=== PATIENT | female | born 1945 | race Caucasian/White ===

== ENCOUNTER 2017-11-08 11:50 | Outpatient (CLI) | payer MEDICARE ==
[2017-11-08 13:23] LABS: Bilirubin Negative (Negative); Blood, Urine Negative (Negative); Clarity CLEAR (Clear); Glucose, Urine (Dipstick) Negative (Negative); Leukocyte Negative (Negative); Nitrite Negative (Negative); Protein, Urine (Dipstick) Negative (Neg-Trace); Specific Gravity, Urine 1.007 (1.002-1.036); Urobilinogen 0.2 mg/dL (0.2-1.0)
[2017-11-08 13:25] LABS: Bacteria/HPF None Seen HPF (None Seen); Hyaline Casts/LPF 0-3 HYALINE CAST LPF (0-3 Hyaline); RBC/HPF 0-3 HPF (0-3); Squamous Epithelial None Seen HPF (0-3); WBC/HPF None Seen HPF (0-3)
[2017-11-08 13:28] LABS: #Eosinphils 0.1 thou/uL (0.0-0.7); #Lymphocytes 1.7 thou/uL (1.20-3.40); #Monocytes 0.5 thou/uL (0.11-0.59); #Neutrophils 3.4 thou/uL (1.40-6.50); %Basophils 0.4 % (0.0-1.0); %Eosinophils 1.6 % (0.0-10.0); %Lymphocytes 29.3 % (21.0-51.0); %Monocytes 9.2 % (0.0-10.0); %Neutrophils 59.5 % (42.0-75.0); Hemoglobin 13.3 g/dL (12.0-16.0); INR-International Normal Ratio 0.9; Mean Corpuscular HGB CONC 33.3 g/dL (32.0-36.0); Mean Corpuscular Hemoglobin 31.1 pg (27.0-31.0); Mean Corpuscular Volume 93.5 fl (81.0-99.0); Platelet Count 182 thou/uL (130-400); Prothrombin Time 12.4 SEC (12.0-14.7); RBC Distribution Width 12.5 % (11.5-14.5); Red Blood Cell (RBC) Count 4.28 mill/uL (4.20-5.40); White Blood Cell (WBC) Count 5.8 thou/uL (4.8-10.8)
[2017-11-08 13:47] LABS: Anion Gap 10 mmol/L (10-20); BUN (Urea Nitrogen) 15 mg/dL (9.8-20.1); Calc. Creatinine Clearance 0 mL/min (70-130); Carbon Dioxide 30 mmol/L (23-31); Chloride 102 mmol/L (98-107); Estimated GFR-MDRD Greater than 90; Glucose 89 mg/dL (83-110); Potassium 3.6 mmol/L (3.5-5.1); Sodium 138 mmol/L (136-145)
--- NOTE | 2017-11-08 15:09 | RAD ---
2 VIEWS CHEST: Date: 11/08/17 HISTORY: Preoperative chest radiograph. FINDINGS: PA and lateral views of chest obtained. Mild cardiomegaly seen. ACDF plates and screws seen in the lower cervical spine. Some osteoporosis of the thoracic spine seen. No evidence of fractures seen. IMPRESSION: Unremarkable 2 views chest. POS: [facility]
== END 2017-11-08 11:51 | disposition home or self-care (01) ==
LOC: LABBT 11:50
PROVIDERS: ATTEND Orthopaedic Surgery
DX: Z01.818 Encounter for other preprocedural examination (principal); M17.12 Unilateral primary osteoarthritis, left knee
CPT/HCPCS: 71046; 80048; 81001; 85025; 85610; 86850; 86900; 86901; 87081

== ENCOUNTER 2017-11-08 12:30 | Inpatient (IN) | payer MEDICARE ==
[2017-11-08 12:14] VITALS: BMI 27.4
[2017-11-15] MEDS ORDERED: HYDROcodone/Acetaminophen 10/325 mg Tablet PO PRN ×3 (07:05→08:45)
[2017-11-15] MEDS ORDERED: Fentanyl 100 MCG/2 ML VIAL SLOW IVP PRN ×2 (07:05)
[2017-11-15] MEDS ORDERED: Zolpidem Tartrate 5 MG TAB PO PRN ×2 (07:05→08:45)
[2017-11-15] MEDS ORDERED: Ondansetron HCl/PF 4 MG/2 ML Vial IVP PRN ×2 (07:05→09:52)
[2017-11-15] MEDS ORDERED: traMADol HCl 50 MG TAB PO PRN ×3 (07:05→08:45)
[2017-11-15] MEDS ORDERED: Acetaminophen 325 MG TAB PO PRN (07:05)
[2017-11-15] MEDS ORDERED: diphenhydrAMINE 25 MG CAP PO PRN (07:05)
[2017-11-15] MEDS ORDERED: Promethazine HCl 25 MG/ML VIAL IM PRN ×3 (07:05→09:52)
[2017-11-15] MEDS ORDERED: Tranexamic Acid 1,000 MG in Sodium Chloride 0.9% 100 ML IVPB SCH (07:15)
[2017-11-15] MEDS ORDERED: Fentanyl 100 MCG/2 ML VIAL ONE ×2 (08:01→11:17)
[2017-11-15] MEDS ORDERED: Midazolam HCl 2 mg/2 ml Vial ONE (08:01)
[2017-11-15] MEDS ORDERED: Sodium Chloride 0.9% 100 ML ONE (08:02)
[2017-11-15] MEDS ORDERED: Promethazine HCl 25 MG/ML VIAL SLOW IVP PRN (09:52)
--- NOTE | 2017-11-15 10:51 | OP ---
DATE OF PROCEDURE: 11/15/2017 PREOPERATIVE DIAGNOSIS: End-stage tricompartmental osteoarthritis, left knee. POSTOPERATIVE DIAGNOSIS: End-stage tricompartmental osteoarthritis, left knee. OPERATIVE PROCEDURE: Cemented cruciate-sparing computer-assisted navigated left total knee arthropla stpaddy. SURGEON: Maximino Back M.D. [employer]LECT[employer] MECHANIC: Gus Anne PA-C. ANESTHESIA: General via laryngeal mask airway augmented with indwelling femoral block and single maribel t sciatic block. COMPONENTS USED: [employer] Triathlon primary cemented cruciate sparing Triathlon size 4 fe moral component with a size 4 cemented primary tibial baseplate, 9 mm polyethylene fixed bearing inse rt, and A32 patellar button. TOURNIQUET TIME: 54 minutes at 300 mmHg. ESTIMATED BLOOD LOSS: Less than 100 mL. FINDINGS: End-stage severe degenerative tricompartmental disease, bone on bone arthrosis, periarticu lar osteophyte formation, large serous effusion, hypertrophic synovium. DRAINS: None. SPECIMENS: None. COMPLICATIONS: None. COUNTS: Correct. INDICATIONS FOR SURGERY: Fern is a 72-year-old white female who has had progressive left knee pain amplified with standing and walking for the last 5-7 years. She has failed conservative management and elected to proceed with left total knee arthroplasty as a definitive treatment of her pain. PROCEDURE IN DETAIL: After informed consent was obtained in the preoperative holding area. The lois ent was taken to the operative suite where general anesthesia was induced. Once adequate level of ge neral anesthesia was obtained, the patient was positioned and a well-padded tourniquet was placed blane und the left proximal thigh. The left lower extremity was then prepped and draped in the usual steri le fashion. Prior to exsanguination, a time out was called and all members of the surgical team agre ed upon site, surgeon, and patient. The extremity was then exsanguinated and the tourniquet was rais ed. A midline longitudinal incision was then made directly over the patella extending two fingerbrea dths above the superior pole of the patella and two fingerbreadths inferior to the inferior patellar pole of the patella. Deeper subcutaneous layers were dissected sharply and local bleeding was contro lled with Bovie electrocautery. A quad tendon longitudinal split was then made sharply and a median parapatellar arthrotomy was carried out both sharp and with Bovie electrocautery, carried down to one fingerbreadth medial to the tibial tubercle. The knee was then placed into flexion and the patella was everted nicely, and a copious fat pad ectomy was performed allowing for greater exposure of the t ibia. The computer-assisted distal femoral fiducial was then placed and pinned firmly, and the dista l femoral cutting guide was pinned firmly into place. The oscillating saw was then used to remove th e appropriate amount of bone. The 4-in-1 cutting block was then placed on the distal femur and the o scillating saw was used to remove the appropriate amount of bone off of the anterior, posterior, and chamfer cuts. After completion of the chamfer cuts, the box-cutting guide was placed, malleted firml y into place and pinned securely, and an osteotome was used to make the distal cut and the oscillatin g saw was then used to make the medial and lateral box cuts. This came out quite nicely and was vera selena with Bovie electrocautery, and the oscillating saw was then used to broaden the lateral medial wa lls of the box cut. After completion of bone cuts, the anterior cruciate ligament was resected sharp ly and the posterior cruciate ligament retractor was placed and the tibia was subluxed for better exp osure. Partial meniscectomies were carried out, and the tibial computer-assisted fiducial was pinned , and the cutting guide was placed. Oscillating saw was then used to remove the bone with Hohmann re tractors used to take care and protect the collateral ligaments. After the tibial resection was perf ormed, a laminar marine erector was placed in between the freshened bone cuts. The knee placed at 90 degre es and further bilateral meniscectomies were carried out, and the curved osteotome and curettage was used to remove any excess bone spurs in the posterior compartment. The trial femoral component, tibi al baseplate were placed with the appropriate polyethylene trial insert with an appropriate polyethyl steve spacer and patellar button. The knee was taken through full range of motion with flexion and ext ension from 0-90 degrees and patellar broach squarely in the trochlea without any squinting or sublu xation noted. The knee was also stable to varus and valgus stressing at 0, 15, 45, and 90 degrees of flexion. The drawer was negative. All trial components were then removed and the keel punch was use d to provide the appropriate defect in the tibia with a mallet. The freshened bone cuts were copious ly irrigated with pulsatile lavage of about 1-1/2 liters to remove all excess debris. The freshened bone cuts were then dried and with suction and lap sponge. The knee was placed in flexion and retrac tors were placed to provide access to all bone cuts. Tobramycin impregnated methyl methacrylate ceme nt was then placed on the freshened bone cuts and implants which were malleted firmly into place. Cu rettage and [place] elevators were used to remove any excess bone cement. The knee was placed into ful l extension and the patellar button was placed under compression, and the cement was allowed to cure. Once completed, the components were again taken through full range of motion and copious irrigation of the knee was carried out with another liter of normal saline. All components were inspected full y with full range of motion and varus and valgus stressing. There was no laxity noted and full extens ion was observed clinically. Primary closure was accomplished with #2 interrupted Vicryl stitch of t he arthrotomy defect. This was oversewn with a #2 running Quill barbed stitch. The subcutaneous lay er was then closed with a running 0 barbed Monocryl stitch and skin closure accomplished with a runni ng subcuticular 3-0 Monocryl barbed Quill stitch and augmented with cement on the skin. Tourniquet w as lowered. Good spontaneous return of distal pulses was noted clinically and a sterile dressing was applied to the incision. The procedure was terminated without any complications. The patient was a wakened in the operative suite and taken to the recovery room in stable condition.
--- NOTE | 2017-11-15 12:13 | RAD ---
LEFT KNEE TWO VIEWS: 11/15/2017 HISTORY: Total knee arthroplasty. FINDINGS: Postoperative fluid and gas are noted anteriorly. No displaced fracture or dislocation. Tibial and femoral components appear well seated with no evidence of hardware failure. IMPRESSION: Status post left total knee arthroplasty. POS: [facility]
[2017-11-15] MEDS ORDERED: Promethazine HCl 25 MG/ML VIAL ONE (12:16)
[2017-11-15] MEDS: Sodium Chloride 0.9% 1,000 ML IV SCH ×2 (13:23→17:48)
[2017-11-15] MEDS: Ketorolac Tromethamine 30 MG/ML VIAL IVP SCH ×2 (13:24→17:44)
[2017-11-15] MEDS: Senokot S 8.6-50 MG TAB PO SCH ×2 (13:24→20:41)
[2017-11-15] MEDS: Aspirin 81 mg Enteric Coated Tablet PO SCH ×2 (13:24→20:40)
[2017-11-15] MEDS: Calcium Carbonate 500 MG TAB PO SCH ×2 (13:24→20:40)
[2017-11-15] MEDS: Ferrous Gluconate 324 MG TAB PO SCH ×2 (13:24→20:40)
[2017-11-15] MEDS: Multivitamin W/ Minerals 1 TAB PO SCH (13:24)
[2017-11-15] MEDS ORDERED: Ketorolac Tromethamine 30 MG/ML VIAL IM SCH (14:00)
--- NOTE | 2017-11-15 14:06 | PDOC.FPRHP ---
- History of Present Illness Chief Complaint: Consult for medical management s/p left total knee arthroplasty History of Present Illness: 72F presents for medical management. She is s/p left total knee arthroplasty due to pain, failing conservative management for the past 5-7 years. She says at this time, she has some pain in her knee, but it is tolerable at this time. She reports that Gen Surg plans to discharge her with outpatient therapy later this week. Her current complaint includes feeling unable to take a full breath at this time. She specifically denies pleurisy, cough, congestion. Vitals at this time shows O2 of 97% on RA, she is able to take in 1500 ml on incentive spirometry and breath sound is clear and equal on both side. She complains about neck pain. She has history of surgery involving c5-c7 with hardware placement. She rates the pain as localized, 5/10, aching. She has history of SVT with ablation. She is not symptomatic at this time, denying palpitation, chest pain, nausea. On metoprolol succinate 25 mg QD. HLD: On atorvastatin 10 mg QD. Denies muscle ache side effect. GERD: Takes tums for this. Has not required other medications. - Allergies/Adverse Reactions Allergies Allergy/AdvReac Type Severity Reaction Status Date / Time belladonna alkaloids Allergy hallucinati Verified 11/08/17 12:14 ons - Home Medications Medication Instructions Recorded Confirmed Type Acetaminophen 1,000 mg PO Q6HR PRN 11/08/17 11/08/17 History Ascorbate Calcium [Vitamin C] 1,000 mg PO HS 11/08/17 11/08/17 History Aspirin 325 mg PO 11/08/17 11/08/17 History Atorvastatin Calcium [Lipitor] 10 mg PO HS 11/08/17 11/08/17 History Calcium Carbonate [Calcium] 1,000 mg PO BID 11/08/17 11/08/17 History Metoprolol Succinate 25 mg PO DAILY 11/08/17 11/08/17 History Isabel-3 Fatty Acids/Fish Oil [Fish 2 cap PO HS 11/08/17 11/08/17 History Oil 1,000 mg Capsule] Vitamin E 400 unit PO HS 11/08/17 11/08/17 History - History PMHx: PSHx: FHx: Social: - Review of Systems General: denies: fever/chills, fatigue Eyes: denies: vision changes ENT: denies: nasal congestion Respiratory: reports: other (Feels unable to take full breath). denies: cough, congestion Cardiovascular: denies: chest pain, palpitation Gastrointestinal: reports: nausea. denies: vomiting, constipation, abdominal pain Genitourinary: reports: other (Bai catheter in.) Skin: reports: other (Left knee bandaged s/p surgery.) Musculoskeletal: reports: pain (Pain at neck and left knee.), arthritis/ arthralgias (Reports arthritis "everywhere") Neurological: reports: numbness (Endorse some numbness in left foot s/p surgery) . denies: weakness Psychological: denies: anxiety, depression - Vital signs BP: [] HR: [] RR: [] Tmax: [] Pox: []% on [] Wt: [] - Physical Exam Constitutional: NAD, awake, alert and oriented HEENT: normocephalic and atraumatic, conjunctiva clear, no scleral icterus, grossly normal hearing, MMM Neck: trachea midline -Neck: Neck tender to palpation posteriorly Heart: no murmurs/rubs/gallops -Heart: Irregularly irregular heart rate, overall HR approximately 86 Lungs: CTAB, no respiratory distress, good air movement, no wheezing, no retractions Abdomen: soft, non-tender, bowel sounds present Neurological: no focal deficit -Neurological: Able to move toes in both limbs. Able to take gross movement in both legs. Endorse numbness in left leg, but is able to detect gross sensation. Bandaged left knee Skin: no rash/lesions Heme/Lymphatic: no unusual bruising or bleeding Psychiatric: normal mood and affect, good judgment and insight, intact recent and remote memory FMR H&P: Results - Labs Result Diagrams: 11/16/17 04:49 Additional comment: Presurgical lab result on 11/08 are as followed WBC 5.8, Hgb 13.3, Plt 182 PT 12.4, INR 0.9 Na 138, K 3.6, Cl 102, Bicarb 30, BUN 15, Ca 0.62, Glucose 89, Ca 9 UA: Normal without sign of infection. FMR H&P: A/P - Problem List (1) Status post total left knee replacement using cement Current Visit: Yes Status: Acute Code(s): Z96.652 - PRESENCE OF LEFT ARTIFICIAL KNEE JOINT Assessment and Plan: Uncomplicated sx according to op note. Patient state the plan dispo is for outpatient therapy later this week. Patient at this time feels pain is bearable. Plan is to follow up with surgical recs, and for patient to participate in physical therapy while here. Follow up with surg on resuming anticoagulation. (2) Irregular heart beat Current Visit: Yes Status: Acute Code(s): I49.9 - CARDIAC ARRHYTHMIA, UNSPECIFIED Assessment and Plan: Detected on exam. Patient asymptomatic with stable vitals. Plan is to obtain EKG. May possibly be previous SVT. (3) HLD (hyperlipidemia) Current Visit: Yes Status: Acute Code(s): E78.5 - HYPERLIPIDEMIA, UNSPECIFIED Assessment and Plan: Resume atorvastatin,. (4) Hx of supraventricular tachycardia Current Visit: Yes Status: Acute Code(s): Z86.79 - PERSONAL HISTORY OF OTHER DISEASES OF THE CIRCULATORY SYSTEM Assessment and Plan: Will obtain EKG. Resume metoprolol. (5) Hx of cervical spine surgery Current Visit: Yes Status: Acute Code(s): Z98.890 - OTHER SPECIFIED POSTPROCEDURAL STATES Assessment and Plan: Will start lidocaine patch once daily for neck pain. - Plan Patient says her dc is likely Tuesday of this week to outpatient rehab Disposition/LOS: 3 days FMR H&P: Upper Level - Plan Date/Time: 11/15/17 1402 I, [], have evaluated this patient and agree with findings/plan as outlined by pr internship resident. Pertinent changes/additions are listed here. Attending Addendum - Attending Addendum Date/Time: 11/15/17 1500 I personally evaluated the patient and discussed the management with Dr. Dinh I agree with the History, Examination, Assessment and Plan documented above with any addition or exceptions noted below. Will monitor and treat medical problems that arise. EKG ordered due to abnormal rhythm noted on exam. Will follow up with ortho to discuss appropriate timing of anticoagulant. Saira
[2017-11-15] MEDS: Lidocaine 5% Patch TD SCH (14:39)
[2017-11-15] MEDS ORDERED: Ondansetron HCl/PF 4 MG/2 ML Vial ONE (15:42)
[2017-11-15] MEDS ORDERED: Lidocaine 1% PF 5 ML VIAL ONE (15:42)
[2017-11-15] MEDS ORDERED: PROPOFOL 200 MG/20 ML VIAL ONE (15:42)
[2017-11-15] MEDS ORDERED: Ropivacaine 0.5% HCl/PF (150 MG/30 ML VIAL) ONE (16:24)
[2017-11-15] MEDS ORDERED: Ropivacaine 0.2% HCl/PF (40 MG/20 ML VIAL) ONE (16:24)
[2017-11-15] MEDS: CEFAZOLIN/Water 2 GM/20 ML SYRINGE SLOW IVP SCH (17:48)
[2017-11-15] MEDS: Vitami E (Dl,Tocopheryl Acet) 400 UNITS CAP PO SCH (20:39)
[2017-11-15] MEDS: Fish Oil 1,000 MG CAP PO SCH (20:39)
[2017-11-15] MEDS: Atorvastatin Calcium 10 MG TAB PO SCH (20:40)
[2017-11-15] MEDS: HYDROcodone/Acetaminophen 10/325 mg Tablet PO PRN (20:42)
[2017-11-15] MEDS: Ondansetron HCl/PF 4 MG/2 ML Vial IVP PRN (22:33)
[2017-11-16] MEDS: Ketorolac Tromethamine 30 MG/ML VIAL IVP SCH ×5 (01:00→23:21)
[2017-11-16] MEDS: Bupivacaine 0.5% 50 ML in Sodium Chloride 0.9% 50 ML NERVE BLCK SCH ×2 (01:02→23:23)
[2017-11-16] MEDS: CEFAZOLIN/Water 2 GM/20 ML SYRINGE SLOW IVP SCH (01:02)
[2017-11-16] MEDS: Sodium Chloride 0.9% 1,000 ML IV SCH ×3 (02:15→23:22)
[2017-11-16 05:33] LABS: Mean Corpuscular HGB CONC 32.8 g/dL (32.0-36.0); Mean Corpuscular Hemoglobin 30.9 pg (27.0-31.0); Mean Corpuscular Volume 94.2 fl (81.0-99.0); Mean Platelet Volume 8.1 fL (7.4-10.4); Platelet Count 165 thou/uL (130-400); RBC Distribution Width 12.4 % (11.5-14.5); Red Blood Cell (RBC) Count 3.55 mill/uL (4.20-5.40); White Blood Cell (WBC) Count 7.2 thou/uL (4.8-10.8)
[2017-11-16] MEDS: Ondansetron HCl/PF 4 MG/2 ML Vial IVP PRN ×2 (05:36→14:45)
[2017-11-16] MEDS: Multivitamin W/ Minerals 1 TAB PO SCH (08:40)
[2017-11-16] MEDS: Ferrous Gluconate 324 MG TAB PO SCH ×2 (08:40→20:07)
[2017-11-16] MEDS: Aspirin 81 mg Enteric Coated Tablet PO SCH ×2 (08:40→20:00)
[2017-11-16] MEDS: Calcium Carbonate 500 MG TAB PO SCH ×2 (08:40→20:06)
[2017-11-16] MEDS: Senokot S 8.6-50 MG TAB PO SCH ×2 (08:40→20:07)
[2017-11-16] MEDS: Lidocaine 5% Patch TD SCH (08:42)
[2017-11-16] MEDS: HYDROcodone/Acetaminophen 10/325 mg Tablet PO PRN (08:44)
[2017-11-16] MEDS ORDERED: Acetaminophen/Codeine 30-300mg Tablet PO PRN ×4 (09:33→09:41)
[2017-11-16] MEDS ORDERED: Metoclopramide HCl 10 MG/2 ML VIAL IVP PRN (09:35)
--- NOTE | 2017-11-16 10:18 | PRG ---
DATE OF SERVICE: 11/16/2017 SUBJECTIVE: Fern is a 72-year-old white female postop day 1 from left total knee arthroplasty. Sh bsihop is doing relatively well. She does have some postoperative nausea and vomiting. She attributes th is probably to the O'Brien. It has been refractory to Zofran. OBJECTIVE: VITAL SIGNS: Temperature 98.1, pulse 86, respiratory rate 16, blood pressure is 107/61. GENERAL: She is alert and oriented to person, place, time, and situation. Grossly nonfocal appropri ate with examiner. LABORATORY DATA: Hemoglobin and hematocrit 11.0 and 33.5 respectively. ASSESSMENT: 1. A 72-year-old white female postoperative day #1 left total knee arthroplasty, doing well. 2. Postoperative nausea, vomiting. 3. Mild postoperative hemorrhagic anemia. PLAN: 1. We will add Reglan to her regimen. Probable discharge home tomorrow. 2. I will also change her O'Brien to Tylenol.
--- NOTE | 2017-11-16 11:18 | PDOC.FM ---
- Subjective Subjective: Patient doing well, states that she does have some nausea after norco, but says she responded well to ketorolac. She states pain is relatively well controlled. Her neck pain has resolved after lidocaine patch and hot wrap. - Objective MAR Reviewed: Yes Vital Signs & Weight: Vital Signs (12 hours) Temp Pulse Resp BP BP Pulse Ox 11/16/17 07:10 99.1 F 86 16 107/61 93 L 11/16/17 04:00 98.7 F 87 16 108/64 97 11/16/17 00:00 98.9 F 87 16 100/67 96 Weight Weight 77.111 kg I&O: 11/15/17 11/16/17 11/17/17 06:59 06:59 06:59 Intake Total 2401.0 Output Total 1999 Balance 401.0 Result Diagrams: 11/16/17 04:49 <Fabián Dinh M - Last Filed: 11/16/17 11:11> - Objective Vital Signs & Weight: Vital Signs (12 hours) Temp Pulse Resp BP BP Pulse Ox 11/16/17 12:02 98.7 F 70 18 99/64 91 L 11/16/17 08:00 98.7 F 70 18 11/16/17 07:10 99.1 F 86 16 107/61 93 L 11/16/17 04:00 98.7 F 87 16 108/64 97 Weight Admit Weight 77.111 kg Weight 77.111 kg I&O: 11/15/17 11/16/17 11/17/17 06:59 06:59 06:59 Intake Total 2401.0 Output Total 1999 Balance 401.0 Result Diagrams: 11/16/17 04:49 <Compa Morin - Last Filed: 11/16/17 14:31> Phys Exam - Physical Examination Constitutional: NAD HEENT: moist MMs Neck: no nodes, supple Respiratory: no wheezing, no rales, no rhonchi, clear to auscultation bilateral Cardiovascular: RRR Gastrointestinal: soft, no distention, positive bowel sounds Musculoskeletal: no edema Neurological: non-focal, normal sensation, moves all 4 limbs Lymphatic: no nodes Psychiatric: normal affect Skin: no rash Deviation from normal: Left leg in boot and wrapping <Fabián Dinh M - Last Filed: 11/16/17 11:11> Dx/Plan (1) Status post total left knee replacement using cement Code(s): Z96.652 - PRESENCE OF LEFT ARTIFICIAL KNEE JOINT Status: Acute Plan: Today, patient will be doing rehab. Will follow up with ortho plan for dispo and discharge. Predicted discharge is tomorrow. (2) Irregular heart beat Code(s): I49.9 - CARDIAC ARRHYTHMIA, UNSPECIFIED Status: Acute Plan: Pt with hx of SVT. Yesterday exam found irregular HR. EKG done, finding only PVC. Today, it has resolved. (3) HLD (hyperlipidemia) Code(s): E78.5 - HYPERLIPIDEMIA, UNSPECIFIED Status: Acute Plan: Continue simvastatin. Not having myalgia (4) Hx of supraventricular tachycardia Code(s): Z86.79 - PERSONAL HISTORY OF OTHER DISEASES OF THE CIRCULATORY SYSTEM Status: Acute Plan: Continue metoprolol. (5) Hx of cervical spine surgery Code(s): Z98.890 - OTHER SPECIFIED POSTPROCEDURAL STATES Status: Acute Plan: Pain has resolved at this time with heat and lidocaine patch. <Fabián Dinh M - Last Filed: 11/16/17 11:11> Attending Addendum - Attending Addendum Date/Time: 11/16/17 1430 I personally evaluated the patient and discussed the management with Dr. Dinh. I agree with the History, Examination, Assessment and Plan documented above with any addition or exceptions noted below. Patient chronic medical problems stable. Pain control per Primary team. We will make adjustments to home medications as necessary. She should be stable for discharge once the primary team is ready for her disposition. <Compa Morin R - Last Filed: 11/16/17 14:31>
[2017-11-16] MEDS: Fentanyl 100 MCG/2 ML VIAL IV PRN ×2 (16:34→20:00)
[2017-11-16] MEDS: Atorvastatin Calcium 10 MG TAB PO SCH (20:00)
[2017-11-16] MEDS: Vitami E (Dl,Tocopheryl Acet) 400 UNITS CAP PO SCH (20:07)
[2017-11-16] MEDS: Fish Oil 1,000 MG CAP PO SCH (20:07)
[2017-11-16] MEDS ORDERED: Lidocaine Patch Removal 1 EACH TOP SCH (21:00)
[2017-11-17] MEDS: Fentanyl 100 MCG/2 ML VIAL IV PRN (04:11)
[2017-11-17] MEDS: Ketorolac Tromethamine 30 MG/ML VIAL IVP SCH (04:12)
[2017-11-17 04:35] VITALS: BP 112/68; TEMP 100.1
[2017-11-17 05:45] LABS: Hemoglobin 10.8 g/dL (12.0-16.0); Mean Corpuscular HGB CONC 33.4 g/dL (32.0-36.0); Mean Corpuscular Hemoglobin 31.2 pg (27.0-31.0); Mean Corpuscular Volume 93.3 fl (81.0-99.0); Mean Platelet Volume 7.9 fL (7.4-10.4); Platelet Count 158 thou/uL (130-400); RBC Distribution Width 12.7 % (11.5-14.5); Red Blood Cell (RBC) Count 3.46 mill/uL (4.20-5.40)
[2017-11-17] MEDS: Aspirin 81 mg Enteric Coated Tablet PO SCH (08:33)
[2017-11-17] MEDS: Ondansetron HCl/PF 4 MG/2 ML Vial IVP PRN (08:34)
--- NOTE | 2017-11-17 09:23 | PDOC.FM ---
- Subjective Subjective: Patient is seen in bed, reading newspaper. She denies pain, nausea, has had BM, and participated in PT - Objective MAR Reviewed: Yes Vital Signs & Weight: Vital Signs (12 hours) Temp Pulse Resp BP BP Pulse Ox 11/17/17 07:26 100.1 F H 85 14 11/17/17 04:34 100.1 F H 85 14 112/68 94 L 11/17/17 00:00 98.9 F 92 16 110/73 95 Weight Admit Weight 77.111 kg Weight 77.111 kg I&O: 11/16/17 11/17/17 11/18/17 06:59 06:59 06:59 Intake Total 2401.0 240 Output Total 2000 Balance 401.0 240 Result Diagrams: 11/17/17 05:30 <Fabián Dinh M - Last Filed: 11/17/17 09:20> - Objective Vital Signs & Weight: Vital Signs (12 hours) Temp Pulse Resp BP BP Pulse Ox 11/17/17 07:26 100.1 F H 85 14 11/17/17 04:34 100.1 F H 85 14 112/68 94 L 11/17/17 00:00 98.9 F 92 16 110/73 95 Weight Admit Weight 77.111 kg Weight 77.111 kg I&O: 11/16/17 11/17/17 11/18/17 06:59 06:59 06:59 Intake Total 2401.0 240 Output Total 2000 Balance 401.0 240 Result Diagrams: 11/17/17 05:30 <Compa Morin - Last Filed: 11/17/17 10:53> Phys Exam - Physical Examination Constitutional: NAD HEENT: moist MMs Neck: no nodes, supple Respiratory: no wheezing, no rales, no rhonchi Cardiovascular: RRR, no significant murmur Gastrointestinal: soft, non-tender, positive bowel sounds Musculoskeletal: no edema Neurological: non-focal, moves all 4 limbs Lymphatic: no nodes Psychiatric: normal affect Skin: no rash Deviation from normal: Bandaged left leg <Fabián Dinh M - Last Filed: 11/17/17 09:20> Dx/Plan (1) Status post total left knee replacement using cement Code(s): Z96.652 - PRESENCE OF LEFT ARTIFICIAL KNEE JOINT Status: Acute Plan: Today, patient will be doing rehab. Will follow up with ortho plan for dispo and discharge. Will follow along with Ortho Patient had elevated temp of 100.1, but not true fever, no increased pain at surgical site, no elevated WBC or left shift. Possible atelectasis. Ask nursing for repeat temp today. Doubt infectious cause. Predicted discharge is today. (2) HLD (hyperlipidemia) Code(s): E78.5 - HYPERLIPIDEMIA, UNSPECIFIED Status: Acute Plan: Continue simvastatin. Not having myalgia (3) Hx of supraventricular tachycardia Code(s): Z86.79 - PERSONAL HISTORY OF OTHER DISEASES OF THE CIRCULATORY SYSTEM Status: Acute Plan: Continue metoprolol. (4) Hx of cervical spine surgery Code(s): Z98.890 - OTHER SPECIFIED POSTPROCEDURAL STATES Status: Acute Plan: Resolved issue <Fabián Dinh - Last Filed: 11/17/17 09:20> Attending Addendum - Attending Addendum Date/Time: 11/17/17 1052 I personally evaluated the patient and discussed the management with Dr. Dinh. I agree with the History, Examination, Assessment and Plan documented above with any addition or exceptions noted below. Patient doing well, and pain is controlled. No changes to our mgmt. She did have low grade temperature, but expect this is due to atelectasis as her WBC normal and no left shift. She should be stable for discharge once cleared by the primary team. <Compa Morin - Last Filed: 11/17/17 10:53>
[2017-11-17] MEDS: Calcium Carbonate 500 MG TAB PO SCH (09:57)
[2017-11-17] MEDS: Ferrous Gluconate 324 MG TAB PO SCH (09:57)
[2017-11-17] MEDS: Sodium Chloride 0.9% 1,000 ML IV SCH (09:58)
[2017-11-17] MEDS: Multivitamin W/ Minerals 1 TAB PO SCH (09:58)
[2017-11-17] MEDS: Senokot S 8.6-50 MG TAB PO SCH (09:58)
[2017-11-17] MEDS: Lidocaine 5% Patch TD SCH (09:58)
== END 2017-11-17 12:26 | disposition home or self-care (01) | DRG 470 ==
LOC: SURG A 11-15 06:22 → EDSTATUS 11-15 12:30 → SURG B 11-15 12:59
PROVIDERS: ADMIT Orthopaedic Surgery; ATTEND Orthopaedic Surgery
PROC: 0SRD0J9 Replacement of Left Knee Joint with Synthetic Substitute, Cemented, Open Approach (ICD-10-PCS; principal; 2017-11-15)
DX: M17.12 Unilateral primary osteoarthritis, left knee (principal); D64.9 Anemia, unspecified; K91.0 Vomiting following gastrointestinal surgery; Y83.1 Surgical operation with implant of artificial internal device as the cause of abnormal reaction of the patient, or of later complication, without mention of misadventure at the time of the procedure; E78.5 Hyperlipidemia, unspecified
CPT/HCPCS: 36415; 85027; 93005; 93010; C1713; C1776; G8978-GP-CK; G8979-GP-CK; J1885; J2001; J2250; J2405; J2550; J2704; J2795; J3010; J3370; J3490; J7050

== ENCOUNTER 2019-04-11 10:07 | Outpatient (CLI) | payer MEDICARE ==
--- NOTE | 2019-04-11 12:01 | BD ---
BONE DENSITOMETRY: Date: 04/11/19 HISTORY: Postmenopausal osteoporosis screening. FINDINGS: Lumbar Spine: BMD (g/cm2) L1 1.038 T-Score: 0.4 L2 1.157 T-Score: 1.2 L3 1.165 T-Score: 0.7 L4 1.084 T-Score: 0.2 Total 1.111 T-Score: 0.6 Left Femoral Neck: 0.851 T-Score: 0.0 Total Femur: 1.051 T-Score: 0.9 IMPRESSION: Bone mineral density of the lumbar spine and femoral neck are both within normal range. POS: [facility]
== END 2019-04-11 10:08 | disposition home or self-care (01) ==
LOC: BICMAMMO 10:07
PROVIDERS: ATTEND Nurse Practitioner Family
DX: Z13.820 Encounter for screening for osteoporosis (principal)
CPT/HCPCS: 77080

== ENCOUNTER 2020-10-22 13:00 | Inpatient (IN) | payer MEDICARE ==
[2020-11-03] MEDS ORDERED: Tranexamic Acid 1,000 MG/10 ML VIAL ONE (07:41)
[2020-11-03] MEDS ORDERED: Sodium Chloride 0.9% 100 ML ONE (07:41)
[2020-11-03] MEDS ORDERED: Vancomycin 1.5 GRAM/300 ML BAG 1.5 GM in Premix Bag 1 BAG IVPB SCH (07:45)
[2020-11-03] MEDS ORDERED: Midazolam HCl 2 mg/2 ml Vial ONE (07:48)
[2020-11-03] MEDS ORDERED: Lidocaine 1% (PF) 30 ML VIAL ONE (07:48)
[2020-11-03] MEDS ORDERED: Fentanyl 100 MCG/2 ML VIAL ONE ×2 (07:48→08:56)
[2020-11-03] MEDS ORDERED: Promethazine HCl 25 MG/ML VIAL IM PRN ×3 (08:50→10:36)
[2020-11-03] MEDS ORDERED: diphenhydrAMINE 25 MG CAP PO PRN (08:50)
[2020-11-03] MEDS ORDERED: Zolpidem Tartrate 5 MG TAB PO PRN ×2 (08:50→09:30)
[2020-11-03] MEDS ORDERED: HYDROcodone/Acetaminophen 10/325 mg Tablet PO PRN ×4 (08:50→09:30)
[2020-11-03] MEDS ORDERED: Aspirin 81 mg Enteric Coated Tablet PO SCH (09:00)
[2020-11-03] MEDS ORDERED: Dexamethasone 20 MG/5 ML VIAL ONE (09:09)
[2020-11-03] MEDS ORDERED: Lidocaine 1% PF 5 ML VIAL ONE (09:09)
[2020-11-03] MEDS ORDERED: Ropivacaine 2% HCl/PF (20 MG/10 ML VIAL) ONE (09:09)
[2020-11-03] MEDS ORDERED: Ropivacaine 0.5% HCl/PF (150 MG/30 ML VIAL) ONE (09:09)
[2020-11-03] MEDS ORDERED: PROPOFOL 200 MG/20 ML VIAL ONE (09:09)
[2020-11-03] MEDS ORDERED: Ondansetron PF 4 MG/2 ML Vial ONE (09:09)
[2020-11-03] MEDS ORDERED: Fentanyl 100 MCG/2 ML VIAL SLOW IVP PRN (09:20)
[2020-11-03] MEDS ORDERED: traMADol HCl 50 MG TAB PO PRN (09:30)
[2020-11-03] MEDS ORDERED: Ropivacaine HCl/PF 250 ML in Premix Bag 1 BAG NERVE BLCK SCH (09:30)
[2020-11-03] MEDS ORDERED: Ondansetron PF 4 MG/2 ML Vial IVP PRN (09:30)
[2020-11-03] MEDS ORDERED: Ondansetron HCl/PF 4 MG/2 ML Vial IVP PRN (10:36)
[2020-11-03] MEDS ORDERED: Meperidine HCl/PF 25 MG/ML VIAL SLOW IVP PRN (10:36)
[2020-11-03] MEDS ORDERED: Promethazine HCl 25 MG/ML VIAL SLOW IVP PRN (10:36)
[2020-11-03] MEDS ORDERED: Morphine Sulfate 2 MG/ML SYRINGE SLOW IVP PRN (10:36)
[2020-11-03] MEDS ORDERED: HYDROmorphone 2 MG/ML VIAL SLOW IVP PRN (10:36)
[2020-11-03] MEDS: Ketorolac Tromethamine 30 MG/ML VIAL IVP SCH ×3 (12:00→23:28)
[2020-11-03] MEDS: Aspirin 81 mg Enteric Coated Tablet PO SCH ×2 (13:15→21:18)
[2020-11-03] MEDS: Calcium Carbonate 500 MG TAB PO SCH ×2 (13:15→21:18)
[2020-11-03] MEDS: Sodium Chloride 0.9% 1,000 ML IV SCH ×2 (13:19→19:26)
[2020-11-03] MEDS: CEFAZOLIN 2 GM in Premix Bag 1 BAG IVPB SCH ×2 (17:56→23:30)
[2020-11-03] MEDS: Atorvastatin Calcium 10 MG TAB PO SCH (21:19)
[2020-11-03] MEDS: Trospium 20 MG TAB PO SCH (21:19)
[2020-11-04] MEDS: traMADol HCl 50 MG TAB PO PRN ×3 (03:22→21:01)
[2020-11-04] MEDS: Sodium Chloride 0.9% 1,000 ML IV SCH ×2 (04:14→15:44)
[2020-11-04 06:27] LABS: Hemoglobin 11.1 g/dL (12.0-16.0); Mean Corpuscular HGB CONC 32.7 g/dL (32.0-36.0); Mean Corpuscular Hemoglobin 29.9 pg (27.0-31.0); Mean Corpuscular Volume 91.5 fL (78.0-98.0); Mean Platelet Volume 8.5 fL (7.4-10.4); Platelet Count 209 thou/uL (130-400); RBC Distribution Width 13.1 % (11.5-14.5)
[2020-11-04] MEDS: Ketorolac Tromethamine 30 MG/ML VIAL IVP SCH ×4 (07:21→23:52)
[2020-11-04] MEDS: Ondansetron PF 4 MG/2 ML Vial IVP PRN (08:12)
[2020-11-04] MEDS: Aspirin 81 mg Enteric Coated Tablet PO SCH ×2 (08:16→20:59)
[2020-11-04] MEDS ORDERED: Metoclopramide HCl 10 MG TAB PO SCH (10:00)
[2020-11-04] MEDS: Ferrous Gluconate 324 MG TAB PO SCH ×2 (12:56→17:12)
[2020-11-04] MEDS: Calcium Carbonate 500 MG TAB PO SCH ×2 (12:56→20:59)
[2020-11-04] MEDS: Multivitamin W/ Minerals 1 TAB PO SCH (12:56)
[2020-11-04] MEDS: Senokot S 8.6-50 MG TAB PO SCH ×2 (12:56→21:05)
[2020-11-04] MEDS: Atorvastatin Calcium 10 MG TAB PO SCH (20:59)
[2020-11-04] MEDS: Trospium 20 MG TAB PO SCH (21:08)
[2020-11-05] MEDS: Sodium Chloride 0.9% 1,000 ML IV SCH ×3 (02:04→22:01)
[2020-11-05] MEDS: Ketorolac Tromethamine 30 MG/ML VIAL IVP SCH (05:50)
[2020-11-05] MEDS: Ondansetron PF 4 MG/2 ML Vial IVP PRN ×2 (06:15→10:08)
[2020-11-05] MEDS: traMADol HCl 50 MG TAB PO PRN ×3 (06:19→18:28)
[2020-11-05] MEDS: Acetaminophen 325 MG TAB PO PRN ×3 (10:08→21:00)
[2020-11-05] MEDS: Aspirin 81 mg Enteric Coated Tablet PO SCH ×2 (10:10→20:55)
[2020-11-05] MEDS: Ferrous Gluconate 324 MG TAB PO SCH ×2 (10:14→17:28)
[2020-11-05] MEDS: Calcium Carbonate 500 MG TAB PO SCH ×2 (10:14→20:55)
[2020-11-05] MEDS: Senokot S 8.6-50 MG TAB PO SCH ×3 (10:14→20:56)
[2020-11-05] MEDS: Multivitamin W/ Minerals 1 TAB PO SCH (10:14)
[2020-11-05] MEDS: Metoclopramide HCl 10 MG TAB PO PRN ×2 (12:32→18:28)
[2020-11-05] MEDS: Atorvastatin Calcium 10 MG TAB PO SCH (20:55)
[2020-11-05] MEDS: Trospium 20 MG TAB PO SCH (21:00)
[2020-11-06] MEDS: traMADol HCl 50 MG TAB PO PRN ×4 (00:09→18:06)
[2020-11-06] MEDS: Metoclopramide HCl 10 MG TAB PO PRN ×4 (00:09→18:06)
[2020-11-06] MEDS: Sodium Chloride 0.9% 1,000 ML IV SCH ×2 (07:42→17:45)
[2020-11-06] MEDS: Senokot S 8.6-50 MG TAB PO SCH ×2 (08:33→20:40)
[2020-11-06] MEDS: Ferrous Gluconate 324 MG TAB PO SCH ×2 (08:34→17:45)
[2020-11-06] MEDS: Aspirin 81 mg Enteric Coated Tablet PO SCH ×2 (08:34→20:40)
[2020-11-06] MEDS: Calcium Carbonate 500 MG TAB PO SCH ×2 (08:36→20:40)
[2020-11-06] MEDS: Multivitamin W/ Minerals 1 TAB PO SCH (08:37)
[2020-11-06] MEDS: Acetaminophen 325 MG TAB PO PRN ×2 (08:37→20:44)
[2020-11-06] MEDS: Ondansetron PF 4 MG/2 ML Vial IVP PRN ×2 (08:41→20:45)
[2020-11-06] MEDS ORDERED: Polyethylene Glycol 3350 17 GM Packet PO SCH (11:30)
[2020-11-06] MEDS: Polyethylene Glycol 3350 17 GM Packet PO SCH (12:06)
[2020-11-06] MEDS ORDERED: Fleet Enema 133 ML BOT PR SCH (19:00)
[2020-11-06] MEDS: Atorvastatin Calcium 10 MG TAB PO SCH (20:40)
[2020-11-06] MEDS: Trospium 20 MG TAB PO SCH (20:41)
[2020-11-07] MEDS: Sodium Chloride 0.9% 1,000 ML IV SCH ×2 (00:29→10:27)
[2020-11-07] MEDS: Metoclopramide HCl 10 MG TAB PO PRN ×2 (03:43→18:07)
[2020-11-07] MEDS: Bisacodyl 10 MG SUPP PR PRN ×2 (04:01→18:04)
[2020-11-07] MEDS: Polyethylene Glycol 3350 17 GM Packet PO SCH (08:03)
[2020-11-07] MEDS: Multivitamin W/ Minerals 1 TAB PO SCH (08:04)
[2020-11-07] MEDS: Ferrous Gluconate 324 MG TAB PO SCH ×2 (08:04→15:27)
[2020-11-07] MEDS: Aspirin 81 mg Enteric Coated Tablet PO SCH ×2 (08:06→21:09)
[2020-11-07] MEDS: Senokot S 8.6-50 MG TAB PO SCH ×2 (08:06→20:49)
[2020-11-07] MEDS: Calcium Carbonate 500 MG TAB PO SCH ×2 (08:47→21:09)
[2020-11-07] MEDS: Ondansetron PF 4 MG/2 ML Vial IVP PRN ×2 (08:51→15:18)
[2020-11-07] MEDS: traMADol HCl 50 MG TAB PO PRN (15:21)
[2020-11-07] MEDS: Cyclobenzaprine 10 MG TAB PO SCH (20:49)
[2020-11-07] MEDS: Acetaminophen 325 MG TAB PO PRN (21:08)
[2020-11-07] MEDS: Atorvastatin Calcium 10 MG TAB PO SCH (21:09)
[2020-11-07] MEDS: Trospium 20 MG TAB PO SCH (21:23)
[2020-11-08] MEDS: Sodium Chloride 0.9% 1,000 ML IV SCH ×2 (00:45→08:57)
[2020-11-08 04:36] VITALS: TEMP 98.9
[2020-11-08] MEDS: Acetaminophen 325 MG TAB PO PRN ×2 (06:03→11:44)
[2020-11-08] MEDS: Multivitamin W/ Minerals 1 TAB PO SCH (08:53)
[2020-11-08] MEDS: Aspirin 81 mg Enteric Coated Tablet PO SCH (08:54)
[2020-11-08] MEDS: Calcium Carbonate 500 MG TAB PO SCH (08:54)
[2020-11-08] MEDS: Ferrous Gluconate 324 MG TAB PO SCH (08:55)
[2020-11-08] MEDS: Cyclobenzaprine 10 MG TAB PO SCH (08:55)
[2020-11-08] MEDS: Polyethylene Glycol 3350 17 GM Packet PO SCH (08:56)
[2020-11-08] MEDS: Senokot S 8.6-50 MG TAB PO SCH (08:56)
[2020-11-08] MEDS ORDERED: Meloxicam 7.5 MG TAB PO SCH (09:00)
[2020-11-08 09:37] VITALS: BP 116/75
== END 2020-11-08 12:25 | disposition home or self-care (01) | DRG 470 ==
LOC: SJJU 11-03 06:08 → SURG A 11-03 12:01 → EDSTATUS 11-03 13:00
PROVIDERS: ADMIT Orthopaedic Surgery; ATTEND Orthopaedic Surgery
PROC: 0SRC0J9 Replacement of Right Knee Joint with Synthetic Substitute, Cemented, Open Approach (ICD-10-PCS; principal; 2020-11-03)
PROC: 8E0WXBZ Computer Assisted Procedure of Trunk Region (ICD-10-PCS; 2020-11-03)
PROC: 3E0T3BZ Introduction of Anesthetic Agent into Peripheral Nerves and Plexi, Percutaneous Approach (ICD-10-PCS; 2020-11-03)
DX: M17.11 Unilateral primary osteoarthritis, right knee (principal); K56.7 Ileus, unspecified; K59.00 Constipation, unspecified; Z20.822 Contact with and (suspected) exposure to COVID-19; I48.91 Unspecified atrial fibrillation; Z88.8 Allergy status to other drugs, medicaments and biological substances; Z79.899 Other long term (current) drug therapy; Z90.49 Acquired absence of other specified parts of digestive tract; Z79.1 Long term (current) use of non-steroidal anti-inflammatories (NSAID)
CPT/HCPCS: 36415; 74022; 85027; C1713; C1776; J0690; J1100; J1885; J2001; J2250; J2405; J2550; J2704; J2795; J3010; J3490

== ENCOUNTER 2020-10-29 13:03 | Outpatient (CLI) | payer MEDICARE ==
[2020-10-29 14:39] LABS: Bilirubin Neg (Negative); Blood, Urine 250 (Negative); Clarity Cloudy (Clear); Glucose, Urine (Dipstick) Normal (Negative); Ketone, Urine Negative (Negative); Leukocyte 100 (Negative); Nitrite Negative (Negative); Protein, Urine (Dipstick) 30 mg/dl (Neg-Trace); Specific Gravity, Urine 1.025 (1.002-1.036); Urobilinogen Normal mg/dL (Less than 2)
[2020-10-29 15:00] LABS: #Eosinphils 0.2 10x3/uL (0.0-0.5); #Monocytes 0.7 10x3/uL (0.0-1.1); #Neutrophils 3.4 10x3/uL (1.5-8.4); %Basophils 0.5 % (0.0-2.0); %Eosinophils 3.5 % (0.0-6.0); %Lymphocytes 30.8 % (18.0-47.0); %Monocytes 10.8 % (0.0-10.0); %Neutrophils 53.9 % (40.0-75.0); Hemoglobin 12.1 g/dL (12.0-15.5); Mean Corpuscular HGB CONC 31.8 g/dL (32.0-36.0); Mean Corpuscular Hemoglobin 28.5 pg (27.0-33.0); Mean Corpuscular Volume 89.6 fl (81.6-98.3); Mean Platelet Volume 10.6 fl (7.4-10.4); Platelet Count 251 10x3/uL (150-450); RBC Distribution Width 14.6 % (11.5-14.5); Red Blood Cell (RBC) Count 4.25 10x6/uL (3.90-5.03); White Blood Cell (WBC) Count 6.3 10x3/uL (3.5-10.5)
[2020-10-29 15:03] LABS: Prothrombin Time 10.9 sec (9.5-12.1)
[2020-10-29 15:09] LABS: RBC/HPF Greater than 50 HPF (0-3)
[2020-10-29 15:10] LABS: Squamous Epithelial 0-3 HPF (0-3)
[2020-10-29 15:11] LABS: Bacteria/HPF Rare-Few HPF (None Seen)
[2020-10-29 15:29] LABS: Anion Gap 14 mmol/L (10-20); BUN (Urea Nitrogen) 35 mg/dL (9.8-20.1); Calc. Creatinine Clearance 0 mL/min (70-130); Carbon Dioxide 26 mmol/L (23-31); Chloride 104 mmol/L (98-107); Glucose 117 mg/dL (83-110); Potassium 4.9 mmol/L (3.5-5.1); Sodium 139 mmol/L (136-145)
[2020-10-30 01:05] LABS: SARS-CoV-2 PCR by NAA Not Detected (NotDetected)
== END 2020-10-29 13:04 | disposition home or self-care (01) ==
LOC: LABBT 13:03
PROVIDERS: ATTEND Surgery
DX: Z01.812 Encounter for preprocedural laboratory examination (principal); Z20.822 Contact with and (suspected) exposure to COVID-19; M17.11 Unilateral primary osteoarthritis, right knee
CPT/HCPCS: 80048; 81001; 85025; 85610; U0003; U0005; 87635

== ENCOUNTER 2022-03-08 08:26 | Outpatient (CLI) | payer MEDICARE | END 2022-03-08 08:27 | disposition home or self-care (01) | LOC: SCSMRI 08:26 | PROVIDERS: ATTEND Neurological Surgery | DX: M54.2 Cervicalgia (principal); M47.16 Other spondylosis with myelopathy, lumbar region; M25.78 Osteophyte, vertebrae; M50.30 Other cervical disc degeneration, unspecified cervical region; M43.12 Spondylolisthesis, cervical region; M43.13 Spondylolisthesis, cervicothoracic region; M89.9 Disorder of bone, unspecified; M51.34 Other intervertebral disc degeneration, thoracic region; M47.814 Spondylosis without myelopathy or radiculopathy, thoracic region; M24.28 Disorder of ligament, vertebrae; M48.04 Spinal stenosis, thoracic region; M51.35 Other intervertebral disc degeneration, thoracolumbar region; M48.05 Spinal stenosis, thoracolumbar region; M47.815 Spondylosis without myelopathy or radiculopathy, thoracolumbar region; M51.06 Intervertebral disc disorders with myelopathy, lumbar region; M48.061 Spinal stenosis, lumbar region without neurogenic claudication; M47.817 Spondylosis without myelopathy or radiculopathy, lumbosacral region; M48.07 Spinal stenosis, lumbosacral region; M47.811 Spondylosis without myelopathy or radiculopathy, occipito-atlanto-axial region; M48.02 Spinal stenosis, cervical region; M48.03 Spinal stenosis, cervicothoracic region; M43.14 Spondylolisthesis, thoracic region; M51.24 Other intervertebral disc displacement, thoracic region; Z98.1 Arthrodesis status | CPT/HCPCS: 72050; 72141; 72148 ==

== ENCOUNTER 2022-04-20 11:02 | Outpatient (CLI) | payer MEDICARE ==
[2022-04-20 12:50] LABS: Hemoglobin 12.8 g/dL (12.0-15.5); Mean Corpuscular HGB CONC 33.1 g/dL (32.0-36.0); Mean Corpuscular Hemoglobin 30.3 pg (27.0-33.0); Mean Corpuscular Volume 91.5 fl (81.6-98.3); Mean Platelet Volume 10.7 fl (7.4-10.4); Platelet Count 202 10x3/uL (130-400); RBC Distribution Width 13.3 % (11.5-14.5); Red Blood Cell (RBC) Count 4.23 10x6/uL (3.90-5.03); White Blood Cell (WBC) Count 5.3 10x3/uL (3.5-10.5)
[2022-04-20 13:07] LABS: PTT 25.5 sec (22.0-33.0); Prothrombin Time 10.4 sec (9.5-12.1)
== END 2022-04-20 11:03 | disposition home or self-care (01) ==
LOC: LABBT 11:02
PROVIDERS: ATTEND Neurological Surgery
DX: Z01.818 Encounter for other preprocedural examination (principal); M48.04 Spinal stenosis, thoracic region; M43.16 Spondylolisthesis, lumbar region; M48.061 Spinal stenosis, lumbar region without neurogenic claudication
CPT/HCPCS: 85027; 85610; 85730; 93005; 93010

== ENCOUNTER 2022-04-23 05:39 | Inpatient (IN) | payer MEDICARE ==
[2022-04-23] MEDS ORDERED: Bupivacaine HCl 0.5%/Epinephrine 1:200,000/PF 30 ml Vial ONE (06:18)
[2022-04-23] MEDS ORDERED: Thrombin 5000 UNITS/5 ML VIAL ONE (06:18)
[2022-04-23] MEDS ORDERED: Neomycin-Polymyxin 1 ML AMP ONE ×2 (06:21→09:35)
[2022-04-23] MEDS ORDERED: Midazolam HCl 2 mg/2 ml Vial ONE (06:22)
[2022-04-23] MEDS ORDERED: HYDROcodone/Acetaminophen 7.5/325 mg Tablet PO PRN (06:23)
[2022-04-23] MEDS ORDERED: Milk Of Magnesia 30 ML UDCUP PO PRN (06:23)
[2022-04-23] MEDS ORDERED: fentaNYL PF 100 MCG/2 ML SYRINGE ONE (06:23)
[2022-04-23] MEDS ORDERED: Mag-Al 1200 mg/1200 mg/30 ML UDCUP PO PRN (06:23)
[2022-04-23] MEDS ORDERED: Polyethylene Glycol 3350 17 GM Packet PO PRN (06:27)
[2022-04-23] MEDS ORDERED: Docusate 100 MG CAP PO PRN (06:28)
[2022-04-23] MEDS ORDERED: Senokot 8.6 MG TAB PO PRN (06:29)
[2022-04-23] MEDS ORDERED: CEFAZOLIN 2 GM VIAL ONE (06:47)
[2022-04-23] MEDS ORDERED: Sodium Chloride 0.9% 100 ML ONE (06:48)
[2022-04-23] MEDS ORDERED: PHENYLEPHRINE-NS 100 MCG/ML 10 ML SYRINGE ONE (07:13)
[2022-04-23] MEDS ORDERED: Glycopyrrolate 0.2 MG/ML 5 ML SYRINGE ONE (07:13)
[2022-04-23] MEDS ORDERED: Ondansetron PF 4 MG/2 ML Vial ONE ×2 (07:13→15:19)
[2022-04-23] MEDS ORDERED: Succinylcholine Chloride 200 MG/10 ML VIAL ONE (07:13)
[2022-04-23] MEDS ORDERED: NEOSTIGMINE 3 MG/3 ML SYR 3 MG/3 ML SYRINGE ONE (07:13)
[2022-04-23] MEDS ORDERED: Dexamethasone 20 MG/5 ML VIAL ONE (07:13)
[2022-04-23] MEDS ORDERED: Rocuronium Bromide 10 MG/ML (10ML VIAL) ONE (07:13)
[2022-04-23] MEDS ORDERED: PROPOFOL 200 MG/20 ML VIAL ONE (07:13)
[2022-04-23] MEDS ORDERED: Ketorolac Tromethamine 30 MG/ML VIAL ONE (07:13)
[2022-04-23 07:44] LABS: SARS-CoV-2 NAA Rapid Test Not Detected (NotDetected)
[2022-04-23] MEDS ORDERED: HYDROmorphone 2 MG/ML VIAL ONE (11:09)
[2022-04-23] MEDS ORDERED: Rocuronium Bromide 50 MG/5 ML VIAL ONE (11:33)
[2022-04-23] MEDS: Sodium Chloride 0.9% 1,000 ML IV SCH (16:25)
[2022-04-23] MEDS: CEFAZOLIN 2 GM in Sodium Chloride 0.9% 100 ML IVPB SCH ×2 (16:26→23:13)
[2022-04-23] MEDS: Scopolamine 1.5 mg/72 hour Patch TOP SCH (17:40)
[2022-04-23 17:46] VITALS: BMI 32.1
[2022-04-23] MEDS: Promethazine HCl 25 MG/ML VIAL IM PRN (18:16)
[2022-04-23] MEDS: Gabapentin 100 MG CAP PO SCH (23:17)
[2022-04-23] MEDS: Aspirin 81 mg Enteric Coated Tablet PO SCH ×2 (23:17→23:23)
[2022-04-23] MEDS: Simvastatin 10 MG TAB PO SCH (23:17)
[2022-04-24] MEDS: Promethazine HCl 25 MG/ML VIAL IM PRN ×3 (04:50→13:02)
[2022-04-24] MEDS: HYDROcodone/Acetaminophen 10/325 mg Tablet PO PRN (04:57)
[2022-04-24] MEDS: Sodium Chloride 0.9% 1,000 ML IV SCH ×2 (05:05)
[2022-04-24] MEDS: Docusate 100 MG CAP PO SCH ×3 (08:39→22:10)
[2022-04-24] MEDS ORDERED: Milk Of Magnesia 30 ML UDCUP PO SCH (09:00)
[2022-04-24] MEDS: Acetaminophen 325 MG TAB PO PRN (09:49)
[2022-04-24] MEDS: Bisacodyl 5 MG TAB PO SCH (09:51)
[2022-04-24] MEDS: Acetaminophen/Codeine 30-300mg Tablet PO PRN ×4 (12:58→22:08)
[2022-04-24] MEDS: Milk Of Magnesia 30 ML UDCUP PO SCH (18:04)
[2022-04-24] MEDS: Simvastatin 10 MG TAB PO SCH ×2 (21:37→22:09)
[2022-04-24] MEDS: Gabapentin 100 MG CAP PO SCH ×2 (21:38→22:07)
[2022-04-24] MEDS: Aspirin 81 mg Enteric Coated Tablet PO SCH ×2 (21:38→22:15)
[2022-04-24] MEDS: Morphine 4 MG/ML VIAL SLOW IVP PRN (22:10)
[2022-04-24] MEDS ORDERED: Fleet Enema 133 ML BOT PR SCH (23:00)
[2022-04-25] MEDS: Sodium Chloride 0.9% 1,000 ML IV SCH ×3 (00:34→17:25)
[2022-04-25] MEDS: Milk Of Magnesia 30 ML UDCUP PO SCH ×2 (06:29→17:25)
[2022-04-25] MEDS ORDERED: Fleet Enema 133 ML BOT PR PRN (08:50)
[2022-04-25] MEDS: Bisacodyl 5 MG TAB PO SCH (09:12)
[2022-04-25] MEDS: Docusate 100 MG CAP PO SCH ×2 (09:12→20:31)
[2022-04-25] MEDS: Acetaminophen/Codeine 30-300mg Tablet PO PRN ×2 (09:17→14:04)
[2022-04-25] MEDS: Cyclobenzaprine 10 MG TAB PO PRN ×2 (11:08→20:32)
[2022-04-25] MEDS: Morphine 4 MG/ML VIAL SLOW IVP PRN ×2 (14:49→20:44)
[2022-04-25] MEDS: Gabapentin 100 MG CAP PO SCH (20:31)
[2022-04-25] MEDS: Aspirin 81 mg Enteric Coated Tablet PO SCH (20:31)
[2022-04-25] MEDS: Simvastatin 10 MG TAB PO SCH (20:32)
[2022-04-26] MEDS: Morphine 4 MG/ML VIAL SLOW IVP PRN ×4 (03:56→16:46)
[2022-04-26] MEDS: Milk Of Magnesia 30 ML UDCUP PO SCH ×2 (04:59→16:51)
[2022-04-26] MEDS: Acetaminophen/Codeine 30-300mg Tablet PO PRN ×3 (04:59→18:23)
[2022-04-26] MEDS: Bisacodyl 5 MG TAB PO SCH (08:12)
[2022-04-26] MEDS: Docusate 100 MG CAP PO SCH ×2 (08:12→20:00)
[2022-04-26 08:15] LABS: #Basophils 0.1 thou/uL (0.0-0.2); #Eosinphils 0.3 thou/uL (0.0-0.7); #Lymphocytes 1.6 thou/uL (1.20-3.40); #Monocytes 0.7 thou/uL (0.11-0.59); #Neutrophils 5.1 thou/uL (1.40-6.50); %Basophils 0.8 % (0.0-1.0); %Eosinophils 3.5 % (0.0-10.0); %Lymphocytes 20.4 % (21.0-51.0); %Monocytes 8.7 % (0.0-10.0); %Neutrophils 66.7 % (42.0-75.0); Hemoglobin 10.6 g/dL (12.0-16.0); Mean Corpuscular HGB CONC 32.7 g/dL (32.0-36.0); Mean Corpuscular Hemoglobin 31.9 pg (27.0-31.0); Mean Corpuscular Volume 97.5 fl (78.0-98.0); Mean Platelet Volume 8.6 fL (7.4-10.4); Platelet Count 145 10x3/uL (130-400); RBC Distribution Width 12.2 % (11.5-14.5); Red Blood Cell (RBC) Count 3.34 mill/uL (4.20-5.40); White Blood Cell (WBC) Count 7.7 10x3/uL (4.8-10.8)
[2022-04-26 08:34] LABS: Phosphorus 1.7 mg/dL (2.3-4.7)
[2022-04-26 08:36] LABS: Anion Gap 10 mmol/L (10-20); BUN (Urea Nitrogen) 14 mg/dL (9.8-20.1); Calc. Creatinine Clearance 121 mL/min (70-130); Calcium 8.3 mg/dL (7.8-10.44); Carbon Dioxide 27 mmol/L (23-31); Chloride 101 mmol/L (98-107); Estimated GFR 94; Glucose 94 mg/dL (83-110); Magnesium 2.1 mg/dL (1.6-2.6); Potassium 3.4 mmol/L (3.5-5.1); Sodium 135 mmol/L (136-145)
[2022-04-26] MEDS: Cyclobenzaprine 10 MG TAB PO PRN ×2 (11:29→19:59)
[2022-04-26] MEDS: Sodium Chloride 0.9% 1,000 ML IV SCH ×2 (13:39→21:45)
[2022-04-26] MEDS: Scopolamine 1.5 mg/72 hour Patch TOP SCH (16:46)
[2022-04-26] MEDS: HYDROcodone/Acetaminophen 10/325 mg Tablet PO PRN (19:23)
[2022-04-26] MEDS: Gabapentin 100 MG CAP PO SCH (19:59)
[2022-04-26] MEDS: Aspirin 81 mg Enteric Coated Tablet PO SCH (19:59)
[2022-04-26] MEDS: Simvastatin 10 MG TAB PO SCH (20:00)
[2022-04-27] MEDS: Acetaminophen/Codeine 30-300mg Tablet PO PRN (04:35)
[2022-04-27] MEDS: Cyclobenzaprine 10 MG TAB PO PRN (04:36)
[2022-04-27] MEDS: Milk Of Magnesia 30 ML UDCUP PO SCH ×2 (05:40→17:15)
[2022-04-27] MEDS ORDERED: Potassium Chloride 10 MEQ in Premix Bag 1 BAG IVPB SCH (06:45)
[2022-04-27] MEDS ORDERED: Magnesium Citrate 300 ML BOT PO PRN (06:50)
[2022-04-27 07:44] LABS: Anion Gap 10 mmol/L (10-20); BUN (Urea Nitrogen) 10 mg/dL (9.8-20.1); Calc. Creatinine Clearance 123 mL/min (70-130); Calcium 8.1 mg/dL (7.8-10.44); Carbon Dioxide 26 mmol/L (23-31); Chloride 102 mmol/L (98-107); Estimated GFR 94; Glucose 98 mg/dL (83-110); Potassium 3.3 mmol/L (3.5-5.1); Sodium 135 mmol/L (136-145)
[2022-04-27] MEDS: Gabapentin 100 MG CAP PO SCH ×3 (07:56→21:23)
[2022-04-27] MEDS: Bisacodyl 5 MG TAB PO SCH (07:57)
[2022-04-27] MEDS: tiZANidine HCl 4 MG TAB PO SCH ×3 (07:57→21:23)
[2022-04-27] MEDS: Docusate 100 MG CAP PO SCH ×2 (07:57→21:22)
[2022-04-27] MEDS: HYDROcodone/Acetaminophen 10/325 mg Tablet PO PRN (08:54)
[2022-04-27] MEDS ORDERED: Promethazine HCl 25 MG/ML VIAL IM PRN (10:45)
[2022-04-27] MEDS ORDERED: diphenhydrAMINE 25 MG CAP PO PRN (10:45)
[2022-04-27] MEDS ORDERED: Zolpidem Tartrate 5 MG TAB PO PRN (10:45)
[2022-04-27] MEDS ORDERED: diphenhydrAMINE 50 MG/ML VIAL IM/IV PRN (10:45)
[2022-04-27] MEDS ORDERED: Ondansetron PF 4 MG/2 ML Vial IVP PRN (10:45)
[2022-04-27] MEDS ORDERED: Naloxone HCl 0.4 mg/ml Vial IV PRN (10:45)
[2022-04-27] MEDS: Ketorolac Tromethamine 30 MG/ML VIAL IVP SCH ×2 (10:59→17:15)
[2022-04-27] MEDS ORDERED: Morphine 4 MG/ML VIAL SLOW IVP SCH (11:00)
[2022-04-27] MEDS: Morphine Sulfate 100 MG in Dextrose 5% in Water 98 ML IV SCH (11:53)
[2022-04-27] MEDS: Sodium Chloride 0.9% 1,000 ML IV SCH (17:41)
[2022-04-27] MEDS ORDERED: Electrolyte Replacement Protocol 1 EACH FS SCH (19:30)
[2022-04-27] MEDS: Simvastatin 10 MG TAB PO SCH (21:23)
[2022-04-27] MEDS: Aspirin 81 mg Enteric Coated Tablet PO SCH (21:23)
[2022-04-28] MEDS: Ketorolac Tromethamine 30 MG/ML VIAL IVP SCH ×5 (00:21→23:01)
[2022-04-28] MEDS ORDERED: Electrolyte Replacement Protocol 1 EACH FS SCH (01:15)
[2022-04-28] MEDS ORDERED: Potassium Chloride 20 MEQ TAB PO SCH (01:30)
[2022-04-28] MEDS: Potassium Chloride 20 MEQ in Premix Bag 1 BAG IVPB SCH ×2 (03:50→12:06)
[2022-04-28] MEDS: Milk Of Magnesia 30 ML UDCUP PO SCH ×2 (04:26→19:30)
[2022-04-28 06:20] LABS: #Basophils 0.1 thou/uL (0.0-0.2); #Eosinphils 0.5 thou/uL (0.0-0.7); #Lymphocytes 1.4 thou/uL (1.20-3.40); #Monocytes 0.8 thou/uL (0.11-0.59); #Neutrophils 3.7 thou/uL (1.40-6.50); %Eosinophils 7.4 % (0.0-10.0); %Lymphocytes 21.3 % (21.0-51.0); %Monocytes 12.3 % (0.0-10.0); %Neutrophils 57.9 % (42.0-75.0); Hemoglobin 11.2 g/dL (12.0-16.0); Mean Corpuscular HGB CONC 28.1 g/dL (32.0-36.0); Mean Corpuscular Hemoglobin 28.2 pg (27.0-31.0); Mean Platelet Volume 8.6 fL (7.4-10.4); Platelet Count 183 10x3/uL (130-400); RBC Distribution Width 12.5 % (11.5-14.5); Red Blood Cell (RBC) Count 3.97 mill/uL (4.20-5.40); White Blood Cell (WBC) Count 6.3 10x3/uL (4.8-10.8)
[2022-04-28 06:33] LABS: Anion Gap 14 mmol/L (10-20); BUN (Urea Nitrogen) 13 mg/dL (9.8-20.1); Calc. Creatinine Clearance 123 mL/min (70-130); Carbon Dioxide 18 mmol/L (23-31); Chloride 105 mmol/L (98-107); Estimated GFR 94; Glucose 93 mg/dL (83-110); Sodium 133 mmol/L (136-145)
[2022-04-28] MEDS ORDERED: HYDROmorphone 0.5 MG/0.5 ML SYRINGE ONE ×2 (07:20→13:44)
[2022-04-28] MEDS ORDERED: Famotidine/PF 20 mg/2ml Vial ONE ×2 (07:20→14:13)
[2022-04-28] MEDS ORDERED: fentaNYL PF 100 MCG/2 ML SYRINGE ONE ×2 (07:20→13:44)
[2022-04-28] MEDS ORDERED: Dexamethasone 20 MG/5 ML VIAL ONE ×2 (07:45→14:20)
[2022-04-28] MEDS ORDERED: PROPOFOL 200 MG/20 ML VIAL ONE ×2 (07:45→14:20)
[2022-04-28] MEDS ORDERED: Lidocaine 2% PF 5 ML VIAL ONE (07:45)
[2022-04-28 07:49] LABS: Phosphorus 3.3 mg/dL (2.3-4.7)
[2022-04-28] MEDS ORDERED: Promethazine HCl 25 MG/ML VIAL IM PRN ×2 (09:32→15:59)
[2022-04-28] MEDS ORDERED: Morphine Sulfate 2 MG/ML SYRINGE SLOW IVP PRN ×2 (09:32→15:59)
[2022-04-28] MEDS ORDERED: Promethazine HCl 25 MG/ML VIAL IVPB PRN ×2 (09:32→15:59)
[2022-04-28] MEDS ORDERED: Ondansetron HCl/PF 4 MG/2 ML Vial IVP PRN ×2 (09:32→15:59)
[2022-04-28] MEDS ORDERED: Metoprolol Tartrate 5 MG/5 ML VIAL IVP PRN (09:33)
[2022-04-28] MEDS: tiZANidine HCl 4 MG TAB PO SCH ×3 (11:20→21:30)
[2022-04-28] MEDS: Gabapentin 100 MG CAP PO SCH ×3 (11:20→21:30)
[2022-04-28] MEDS: Docusate 100 MG CAP PO SCH ×2 (11:20→21:28)
[2022-04-28] MEDS ORDERED: Magnesium 2 GM/50 ML(in water) 2 GM in Premix Bag 1 BAG IVPB SCH (11:30)
[2022-04-28] MEDS: Morphine Sulfate 100 MG in Dextrose 5% in Water 98 ML IV SCH (12:03)
[2022-04-28] MEDS: Bisacodyl 5 MG TAB PO SCH (12:42)
[2022-04-28] MEDS ORDERED: Neomycin-Polymyxin 1 ML AMP ONE (14:02)
[2022-04-28] MEDS ORDERED: Thrombin 5000 UNITS/5 ML VIAL ONE ×2 (14:02→15:06)
[2022-04-28] MEDS ORDERED: Bupivacaine HCl 0.5%/Epinephrine 1:200,000/PF 30 ml Vial ONE (14:02)
[2022-04-28 14:07] LABS: Prothrombin Time 13.4 sec (12.0-14.7)
[2022-04-28 14:08] LABS: PTT 42.4 sec (22.9-36.1)
[2022-04-28] MEDS ORDERED: CEFAZOLIN 2 GM VIAL ONE (14:09)
[2022-04-28] MEDS ORDERED: Sodium Chloride 0.9% 100 ML ONE (14:09)
[2022-04-28] MEDS ORDERED: Succinylcholine Chloride 200 MG/10 ML VIAL ONE (14:20)
[2022-04-28] MEDS ORDERED: Rocuronium Bromide 10 MG/ML (10ML VIAL) ONE (14:20)
[2022-04-28] MEDS ORDERED: Metoprolol Tartrate 5 MG/5 ML VIAL ONE (14:20)
[2022-04-28] MEDS ORDERED: Ondansetron PF 4 MG/2 ML Vial ONE (14:20)
[2022-04-28] MEDS ORDERED: PHENYLEPHRINE-NS 100 MCG/ML 10 ML SYRINGE ONE (14:20)
[2022-04-28] MEDS ORDERED: HYDROmorphone 2 MG/ML VIAL SLOW IVP PRN (15:59)
[2022-04-28] MEDS: Sodium Chloride 0.9% 1,000 ML IV SCH ×2 (16:07→21:32)
[2022-04-28] MEDS ORDERED: Ketorolac Tromethamine 30 MG/ML VIAL ONE (17:49)
[2022-04-28] MEDS: Simvastatin 10 MG TAB PO SCH (21:29)
[2022-04-28] MEDS: CEFAZOLIN 2 GM in Sodium Chloride 0.9% 100 ML IVPB SCH (21:30)
[2022-04-29] MEDS: CEFAZOLIN 2 GM in Sodium Chloride 0.9% 100 ML IVPB SCH (06:25)
[2022-04-29] MEDS: Ketorolac Tromethamine 30 MG/ML VIAL IVP SCH (06:26)
[2022-04-29] MEDS: Milk Of Magnesia 30 ML UDCUP PO SCH ×2 (06:27→17:57)
[2022-04-29 09:21] LABS: Bilirubin Negative (Negative); Blood, Urine 2+ (Negative); Clarity Clear (Clear); Glucose, Urine (Dipstick) Normal (Negative); Ketone, Urine 20 mg/dL (Negative); Leukocyte 75 Leu/uL (Negative); Nitrite Negative (Negative); Protein, Urine (Dipstick) 10 mg/dL (Neg-Trace); RBC/HPF 21-50 HPF (0-3); Specific Gravity, Urine 1.023 (1.002-1.036); Squamous Epithelial None Seen HPF (0-3); Urobilinogen Normal mg/dL (Less than 2); pH, Urine 5.5 (5.0-9.0)
[2022-04-29 09:26] LABS: Bacteria/HPF Rare-Few HPF (None Seen)
[2022-04-29] MEDS: tiZANidine HCl 4 MG TAB PO SCH ×3 (10:31→20:25)
[2022-04-29] MEDS: Gabapentin 100 MG CAP PO SCH ×3 (10:31→20:24)
[2022-04-29] MEDS: Docusate 100 MG CAP PO SCH ×2 (10:32→20:24)
[2022-04-29] MEDS: Bisacodyl 5 MG TAB PO SCH (10:32)
[2022-04-29 11:17] LABS: Anion Gap 13 mmol/L (10-20); BUN (Urea Nitrogen) 18 mg/dL (9.8-20.1); Calc. Creatinine Clearance 107 mL/min (70-130); Calcium 7.9 mg/dL (7.8-10.44); Carbon Dioxide 25 mmol/L (23-31); Chloride 103 mmol/L (98-107); Estimated GFR 91; Glucose 95 mg/dL (83-110); Potassium 3.5 mmol/L (3.5-5.1); Sodium 137 mmol/L (136-145)
[2022-04-29] MEDS ORDERED: Magnesium 2 GM/50 ML(in water) 2 GM in Premix Bag 1 BAG IVPB SCH (13:00)
[2022-04-29] MEDS ORDERED: Potassium Chloride 20 MEQ TAB PO SCH (13:00)
[2022-04-29] MEDS: Sodium Chloride 0.9% 1,000 ML IV SCH (13:59)
[2022-04-29] MEDS: cefTRIAXone\\ROCEPHIN 1 GM in Sodium Chloride 0.9% 100 ML IVPB SCH (14:00)
[2022-04-29] MEDS: Scopolamine 1.5 mg/72 hour Patch TOP SCH (18:15)
[2022-04-29] MEDS: Simvastatin 10 MG TAB PO SCH (20:25)
[2022-04-30] MEDS: Milk Of Magnesia 30 ML UDCUP PO SCH ×2 (06:01→17:55)
[2022-04-30] MEDS: Sodium Chloride 0.9% 1,000 ML IV SCH ×3 (06:01→19:32)
[2022-04-30] MEDS ORDERED: Polyethylene Glycol 3350 17 GM Packet PO SCH (09:30)
[2022-04-30] MEDS ORDERED: Magnesium Citrate 300 ML BOT PO SCH (09:30)
[2022-04-30] MEDS: Gabapentin 100 MG CAP PO SCH ×3 (10:16→20:29)
[2022-04-30] MEDS: tiZANidine HCl 4 MG TAB PO SCH ×3 (10:16→20:29)
[2022-04-30] MEDS: Docusate 100 MG CAP PO SCH (10:55)
[2022-04-30] MEDS: Bisacodyl 5 MG TAB PO SCH (10:56)
[2022-04-30] MEDS: cefTRIAXone\\ROCEPHIN 1 GM in Sodium Chloride 0.9% 100 ML IVPB SCH (13:01)
[2022-04-30] MEDS ORDERED: traMADol HCl 50 MG TAB PO PRN ×2 (14:04)
[2022-04-30] MEDS ORDERED: Acetaminophen/Codeine 30-300mg Tablet PO PRN ×2 (14:05)
[2022-04-30] MEDS ORDERED: Morphine 4 MG/ML VIAL SLOW IVP PRN (14:06)
[2022-04-30] MEDS: Acetaminophen 325 MG TAB PO PRN (20:28)
[2022-04-30] MEDS: Simvastatin 10 MG TAB PO SCH (20:29)
[2022-05-01] MEDS: Acetaminophen 325 MG TAB PO PRN ×3 (05:23→18:36)
[2022-05-01] MEDS: Milk Of Magnesia 30 ML UDCUP PO SCH ×2 (06:46→18:41)
[2022-05-01] MEDS ORDERED: Lidocaine 5% Patch TD SCH (08:00)
[2022-05-01] MEDS: Gabapentin 100 MG CAP PO SCH ×3 (08:27→21:10)
[2022-05-01] MEDS: tiZANidine HCl 4 MG TAB PO SCH ×3 (08:27→21:10)
[2022-05-01] MEDS: Polyethylene Glycol 3350 17 GM Packet PO SCH (08:28)
[2022-05-01] MEDS ORDERED: Transdermal Patch Removal TOP SCH (20:00)
[2022-05-01] MEDS: Simvastatin 10 MG TAB PO SCH (21:10)
[2022-05-01] MEDS: Ciprofloxacin 500 MG TAB PO SCH (21:10)
[2022-05-02] MEDS: Ciprofloxacin 500 MG TAB PO SCH (06:46)
[2022-05-02] MEDS: Acetaminophen 325 MG TAB PO PRN ×2 (06:49→11:20)
[2022-05-02] MEDS: Milk Of Magnesia 30 ML UDCUP PO SCH (06:51)
[2022-05-02] MEDS: Gabapentin 100 MG CAP PO SCH ×2 (07:57→14:18)
[2022-05-02] MEDS: tiZANidine HCl 4 MG TAB PO SCH ×2 (07:57→14:18)
[2022-05-02] MEDS: Polyethylene Glycol 3350 17 GM Packet PO SCH (07:58)
[2022-05-02 14:08] VITALS: BP 109/62; TEMP 97.7
[2022-05-02] MEDS ORDERED: Lidocaine 5% Patch TD SCH (14:45)
[2022-05-03] MEDS ORDERED: Transdermal Patch Removal TOP SCH (03:00)
== END 2022-05-02 14:36 | DRG 454 ==
LOC: SDC 05:39 → SURG A 16:05 → OBSVTOIN 04-24 08:32
PROVIDERS: ADMIT Neurological Surgery; ATTEND Neurological Surgery
PROC: 0SG00A0 Fusion of Lumbar Vertebral Joint with Interbody Fusion Device, Anterior Approach, Anterior Column, Open Approach (ICD-10-PCS; principal; 2022-04-23)
PROC: 0SG0071 Fusion of Lumbar Vertebral Joint with Autologous Tissue Substitute, Posterior Approach, Posterior Column, Open Approach (ICD-10-PCS; 2022-04-23)
PROC: 00NX0ZZ Release Thoracic Spinal Cord, Open Approach (ICD-10-PCS; 2022-04-23)
PROC: 01NB0ZZ Release Lumbar Nerve, Open Approach (ICD-10-PCS; 2022-04-23)
PROC: 01N10ZZ Release Cervical Nerve, Open Approach (ICD-10-PCS; 2022-04-23)
PROC: 0SB20ZZ Excision of Lumbar Vertebral Disc, Open Approach (ICD-10-PCS; 2022-04-23)
PROC: 0JC70ZZ Extirpation of Matter from Back Subcutaneous Tissue and Fascia, Open Approach (ICD-10-PCS; 2022-04-28)
DX: M48.061 Spinal stenosis, lumbar region without neurogenic claudication (principal); Z20.822 Contact with and (suspected) exposure to COVID-19; G99.2 Myelopathy in diseases classified elsewhere; L76.34 Postprocedural seroma of skin and subcutaneous tissue following other procedure; L76.32 Postprocedural hematoma of skin and subcutaneous tissue following other procedure; J98.11 Atelectasis; N39.0 Urinary tract infection, site not specified; M48.04 Spinal stenosis, thoracic region; M43.16 Spondylolisthesis, lumbar region; M19.90 Unspecified osteoarthritis, unspecified site; I10 Essential (primary) hypertension; K59.00 Constipation, unspecified; E87.6 Hypokalemia; E83.39 Other disorders of phosphorus metabolism; D64.9 Anemia, unspecified; R20.2 Paresthesia of skin; R41.0 Disorientation, unspecified; Y83.8 Other surgical procedures as the cause of abnormal reaction of the patient, or of later complication, without mention of misadventure at the time of the procedure; Z98.1 Arthrodesis status; Z98.890 Other specified postprocedural states; Z90.49 Acquired absence of other specified parts of digestive tract; Z82.49 Family history of ischemic heart disease and other diseases of the circulatory system; Z79.899 Other long term (current) drug therapy; Z88.8 Allergy status to other drugs, medicaments and biological substances; Z79.82 Long term (current) use of aspirin
CPT/HCPCS: 36415; 71045; 72148; 80048; 81001; 82330; 83735; 84100; 85025; 85610; 85730; 87086; 87811; 93970; 96365; 96372; C1713; C1768; C1776; C1889; G0378; J0330; J0696; J1100; J1170; J1885; J2001; J2250; J2270; J2405; J2550; J2704; J3370; J3475; J3480; J3490; J7050; J7070; S0028; U0002